=== PATIENT | male | born 1980 | race Two or more races ===

== ENCOUNTER 2019-08-10 14:36 | Emergency (ER) | payer OTHER ==
[~2019-08-10] VITALS: Ht 170.2 cm; Wt 72.6 kg
[2019-08-10] MEDS ORDERED: NKM (14:48)
[2019-08-10 14:50] VITALS: BP 108/73
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
[2019-08-10] MEDS ORDERED: ACETAMINOPHEN325 M1 ORAL (14:56)
[2019-08-10] MEDS ORDERED: LIDODERM700 M1 TOPIC (14:56)
[2019-08-10] MEDS ORDERED: IBUPROFEN600 MG ORAL (14:56)
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
[2019-08-10 15:03] VITALS: BP 108/73
--- NOTE | 2019-08-10 15:05 | NUR ---
ER DISCHARGE NOTE: Patient is cleared to be discharged per ERMD, pt is aox4, on room air, with stable vital signs. pt was given dc and prescription instructions, pt was able to verbalize understanding, pt is able to ambulate with steady gait. pt took all belongings.
== END 2019-08-10 15:09 | disposition home or self-care (01) ==
LOC: EMR 14:55
DX: S29.012A Strain of muscle and tendon of back wall of thorax, initial encounter (principal); V43.52XA Car driver injured in collision with other type car in traffic accident, initial encounter; Y92.410 Unspecified street and highway as the place of occurrence of the external cause
CPT/HCPCS: 99282